=== PATIENT | female | born 1955 | race Caucasian/White ===

== ENCOUNTER 2017-03-16 16:54 | Outpatient (CLI) | payer OTHER ==
--- NOTE | 2017-03-17 11:50 | XRAY Report ---
BILATERAL FEET: 03/16/2017 HISTORY: Painful feet. COMPARISON: None. FINDINGS: Left foot: Degenerative change 1st metatarsophalangeal articulation with joint space narrowing, scle rosis, and spurring. Bunion formation. Minimal scattered degenerative changes of the interphalangea l joints of the toes. Very tiny calcaneal spur. Right foot: Advanced osteoarthritic 1st metatarsophalangeal degenerative change with joint space mary kate rowing, sclerosis, subchondral cyst formation, and spurring. Slight lateral subluxation of the 1st p roximal phalanx. Minimal degenerative change of the interphalangeal joint of the great toe and inter phalangeal joints of the other toes. Degenerative change 1st metatarsal head sesamoid articulation. Prominent plantar calcaneal spur and spurring from the superior navicular. No fracture or foreign body in either foot. IMPRESSION: DEGENERATIVE CHANGES OF THE FEET MOST MARKED AT THE 1ST METATARSOPHALANGEAL ARTICULATION , SIGNIFICANTLY WORSE ON THE RIGHT IN COMPARISON TO THE LEFT. JOB #: [id number] EXT JOB #:[id number]
== END 2017-03-16 16:55 | disposition home or self-care (01) ==
LOC: DI 16:54
PROVIDERS: ATTEND Podiatrist
DX: M19.072 Primary osteoarthritis, left ankle and foot (principal); M19.071 Primary osteoarthritis, right ankle and foot

== ENCOUNTER 2017-04-16 15:40 | Outpatient (CLI) | payer OTHER ==
--- NOTE | 2017-04-21 17:57 | Mammography Report ---
DIGITAL BILATERAL SCREENING MAMMOGRAM: 04/16/2017 COMPARISON STUDY: Mammogram 04/06/2016. TECHNIQUE: Routine CC and MLO projections were obtained of the breasts. FINDINGS: Scattered fibroglandular tissue is present within the breasts. There are no dominant mass es, suspicious microcalcifications, or secondary signs of malignancy. In comparison to the previous studies, there are no significant changes. There is postoperative right breast, stable. ASSESSMENT: NO MAMMOGRAPHIC EVIDENCE OF MALIGNANCY. NO SIGNIFICANT INTERVAL CHANGES. RECOMMENDATION: Screening mammography is recommended annually. BIRADS CATEGORY: 2, BENIGN FINDINGS. STANDARD QUALIFYING STATEMENTS 1. This examination was reviewed with the aid of Computed-Aided Detection (CAD). 2. A negative or benign imaging report should not delay biopsy if clinically suspicious findings are present. Consider surgical consultation if warranted. More than 5% of cancers are not identified b y imaging. 3. Dense breasts may obscure an underlying neoplasm. JOB #: [id number] EXT JOB #:[id number]
== END 2017-04-16 15:41 | disposition home or self-care (01) ==
LOC: DI.N 15:40
PROVIDERS: ATTEND Family Medicine
DX: Z12.31 Encounter for screening mammogram for malignant neoplasm of breast (principal)
CPT/HCPCS: 77067

== ENCOUNTER 2018-01-09 08:43 | Emergency (ER) | payer OTHER ==
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
[2018-01-09] MEDS ORDERED: HYDROcod/ACETAM 5/325 MG TABLET PO STA (09:35)
[2018-01-09] MEDS ORDERED: NAPROXEN 250 MG TABLET PO STA (09:35)
[2018-01-09 10:39] VITALS: BP 145/73
--- NOTE | 2018-01-09 10:43 | XRAY Report ---
Procedure Date: 01/09/2018 Accession Number: [id number] / [id number] Procedure: XR - Knee 3 View RT CPT Code: FULL RESULT: EXAM: RIGHT KNEE RADIOGRAPHY EXAM DATE: 01/09/2018 09:58 AM. CLINICAL HISTORY: Fell and twisted right knee yesterday COMPARISON: None. TECHNIQUE: 3 views. FINDINGS: Bones: The patient has a fracture of the lateral tibial plateau, Schatzker 2 or 3. There is depressed segment but, by radiograph, depression would most be 3 mm. Joints: A large knee effusion is demonstrated. Soft Tissues: Normal. No soft tissue swelling. IMPRESSION: Lateral tibial plateau fracture. CT may be helpful for surgical planning. RADIA
== END 2018-01-09 10:52 | disposition home or self-care (01) ==
LOC: ED 08:43
DX: M25.461 Effusion, right knee (principal); S86.911A Strain of unspecified muscle(s) and tendon(s) at lower leg level, right leg, initial encounter; W22.8XXA Striking against or struck by other objects, initial encounter; X50.9XXA Other and unspecified overexertion or strenuous movements or postures, initial encounter; Y92.832 Beach as the place of occurrence of the external cause
CPT/HCPCS: 73562; 99283; A9270

== ENCOUNTER 2018-04-18 16:08 | Outpatient (CLI) | payer OTHER ==
--- NOTE | 2018-04-20 10:01 | Mammography Report ---
Reason: SCREENING MAMMO Procedure Date: 04/18/2018 Accession Number: [id number] / [id number] Procedure: MGN - Screening Mammo Dig Bilat CPT Code: FULL RESULT: EXAM: Screening Mammo Dig Bilat DATE: 04/18/2018 4:28 PM CLINICAL HISTORY: Screening mammogram TECHNIQUE: Bilateral CC and MLO views were obtained. COMPARISON: Mammogram 04/16/2017 FINDINGS: There are scattered fibroglandular densities. There are benign-appearing calcifications. Right scar marker and right axillary clips are noted. No suspicious masses, clustered microcalcifications, or regions of architectural distortion are identified. IMPRESSION: Benign findings RECOMMENDATION: Routine annual screening unless otherwise clinically indicated. BIRADS CATEGORY 2: Benign findings STANDARD QUALIFYING STATEMENTS: 1. This examination was reviewed with the aid of Computer-Aided Detection (CAD). 2. A negative or benign imaging report should not delay biopsy if clinically suspicious findings are present. Consider surgical consultation if warrented. More than 5% of cancers are not identified by imaging. 3. Dense breasts may obscure an underlying neoplasm.
== END 2018-04-18 16:09 | disposition home or self-care (01) ==
LOC: DI.N 16:08
DX: Z12.31 Encounter for screening mammogram for malignant neoplasm of breast (principal)
CPT/HCPCS: 77067

== ENCOUNTER 2018-10-24 08:00 | Outpatient (CLI) | payer OTHER ==
[2018-10-24 12:44] LABS: BASOPHILS % (AUTO) 0.9 %; EOSINOPHILS # (AUTO) 0.3 10^3/uL (0.0-0.7); EOSINOPHILS % (AUTO) 6.4 %; HGB - HEMOGLOBIN 13.2 g/dL (12.0-16.0); LYMPHOCYTES # (AUTO) 1.1 10^3/uL (1.5-3.5); LYMPHOCYTES % (AUTO) 27.3 %; MEAN CORPUSCULAR HEMOGLOBIN 27.9 pg (27.0-31.0); MEAN CORPUSCULAR HGB CONC 33.2 g/dL (32.0-36.0); MEAN CORPUSCULAR VOLUME 84.1 fL (81.0-99.0); MEAN PLATELET VOLUME 8.8 fL (7.9-10.8); MONOCYTES # (AUTO) 0.4 10^3/uL (0.0-1.0); MONOCYTES % (AUTO) 9.8 %; NEUTROPHILS # (AUTO) 2.2 10^3/uL (1.5-6.6); NEUTROPHILS % (AUTO) 55.6 %; PLT - PLATELET COUNT 191 10^3/uL (130-450); RED BLOOD COUNT 4.72 10^6/uL (4.20-5.40); RED CELL DISTRIBUTION WIDTH 13.5 % (12.0-15.0)
[2018-10-24 12:58] LABS: ALBUMIN 3.9 g/dL (3.2-5.5); ALBUMIN/GLOBULIN RATIO 1.3 (1.0-2.2); ALKALINE PHOSPHATASE 75 IU/L (42-121); ALT ALANINE AMINOTRANSFERASE 32 IU/L (10-60); AST ASPARTATE AMINOTRANSFERASE 24 IU/L (10-42); BILIRUBIN,TOTAL 1.3 mg/dL (0.2-1.0); BUN - BLOOD UREA NITROGEN 19 mg/dL (6-20); CALCIUM 9.1 mg/dL (8.5-10.3); CARBON DIOXIDE - CO2 27 mmol/L (21-32); CHLORIDE 105 mmol/L (101-111); CHOL/HDL RATIO 3.5 (<4.4); CHOLESTEROL 222 mg/dL; CREATININE 0.9 mg/dL (0.4-1.0); GFR - MDRD 63 (>89); GLUCOSE 97 mg/dL (70-100); HDL CHOLESTEROL 63 mg/dL; LDL CHOLESTEROL,CALCULATED 144 mg/dL; LDL/HDL RATIO 2.3 (<4.4); MAGNESIUM 2.2 mg/dL (1.7-2.8); PHOSPHORUS 3.9 mg/dL (2.5-4.6); SODIUM 139 mmol/L (135-145); TOTAL PROTEIN 6.9 g/dL (6.7-8.2); VLDL CHOLESTEROL 15 mg/dL
== END 2018-10-24 23:59 | disposition home or self-care (01) ==
LOC: LAB.WCP 08:00
PROVIDERS: ATTEND Physician Assistant Medical
DX: R00.2 Palpitations (principal); E78.5 Hyperlipidemia, unspecified
CPT/HCPCS: 36415; 80053; 80061; 83721; 83735; 84100; 84443; 85025

== ENCOUNTER 2019-02-13 16:58 | Outpatient (CLI) | payer OTHER ==
--- NOTE | 2019-02-15 08:43 | XRAY Report ---
Reason: L CUBOID PAIN + 1ST MP JOINTS B Procedure Date: 02/13/2019 Accession Number: [id number] / [id number] Procedure: XR - Foot 3 View BILAT CPT Code: FULL RESULT: EXAMS: 1. Right Foot Radiography 2. Left Foot Radiography EXAM DATE: 02/13/2019 05:29 PM. CLINICAL HISTORY: Left cuboid pain first MP joints bilateral. COMPARISON: FOOT 3 VIEW BILAT 03/16/2017 4:59 PM. TECHNIQUE: 3 views each foot. FINDINGS: Right: Bones: Normal. No fractures or bone lesions. Joints: Mild bunion deformity. Joint space narrowing with [id number] articulation and moderate degenerative osteophytosis of the first MTP joint. Soft Tissues: Normal. No soft tissue swelling. Left: Bones: Normal. No fractures or bone lesions. No abnormality of the cuboid demonstrated. Joints: Mild bunion deformity. Joint space narrowing with [id number]-hw-izln articulation and small amount of subchondral cyst formation. Moderate degenerative osteophytosis similar to the contralateral side. Soft Tissues: Normal. No soft tissue swelling. IMPRESSION: Symmetric moderate degenerative arthrosis of the first MTP joints. RADIA
== END 2019-02-13 16:59 | disposition home or self-care (01) ==
LOC: DI 16:58
PROVIDERS: ATTEND Podiatrist
DX: M19.072 Primary osteoarthritis, left ankle and foot (principal); M19.071 Primary osteoarthritis, right ankle and foot

== ENCOUNTER 2019-04-21 13:28 | Outpatient (CLI) | payer OTHER ==
--- NOTE | 2019-04-21 15:27 | Mammography Report ---
Reason: ROUTINE MAMMO Procedure Date: 04/21/2019 Accession Number: [id number] / [id number] Procedure: MGN - Screening Mammo Dig Bilat CPT Code: FULL RESULT: EXAM: Screening Mammo Dig Bilat DATE: 04/21/2019 1:57 PM CLINICAL HISTORY: Personal history right breast cancer for routine screening TECHNIQUE: (B) - Bilateral CC and MLO views were obtained. COMPARISON: 04/18/2018, 04/16/2017, 04/06/2016, 04/11/2015, 04/20/2014, 04/13/2013 and 04/08/2012 PARENCHYMAL PATTERN: (F) - The breasts demonstrate diffuse fatty replacement bilaterally. FINDINGS: No significant interval change. Stable posttreatment changes right breast. There are no new suspicious masses, calcifications, or areas of distortion. IMPRESSION: Benign findings. BI-RADS category 2. RECOMMENDATION: (ANNUAL) - Recommend routine annual screening mammography. BI-RADS CATEGORY: (2) - Benign Findings. STANDARD QUALIFYING STATEMENTS: 1. This examination was not reviewed with the aid of Computer-Aided Detection (CAD). 2. A negative or benign imaging report should not preclude biopsy if clinically suspicious findings are present. 3. Dense breasts may obscure an underlying neoplasm. 4. This examination was reviewed without the aid of 3D breast imaging (tomosynthesis).
== END 2019-04-21 13:29 | disposition home or self-care (01) ==
LOC: DI.N 13:28
DX: Z12.31 Encounter for screening mammogram for malignant neoplasm of breast (principal); Z85.3 Personal history of malignant neoplasm of breast
CPT/HCPCS: 77067

== ENCOUNTER 2019-04-26 16:47 | Outpatient (CLI) | payer OTHER ==
--- NOTE | 2019-04-27 09:31 | XRAY Report ---
Reason: TMJ DERANGEMENT Procedure Date: 04/26/2019 Accession Number: [id number] / [id number] Procedure: XR - TMJ's-Temporal Mandibular Jts CPT Code: 47411 FULL RESULT: EXAM: RIGHT/LEFT/BILATERAL TEMPOROMANDIBULAR JOINT RADIOGRAPHY EXAM DATE: 04/26/2019 05:22 PM. CLINICAL HISTORY: TMJ DERANGEMENT. COMPARISON: None. TECHNIQUE: 5 views including open and closed mouth. FINDINGS: Bones: Normal. No fractures or bone lesions. Temporomandibular Joints: Normal. The temporomandibular joints are normally located and symmetric. Sinuses: Normal. No opacities or fluid levels. Other: Normal. No soft tissue swelling. IMPRESSION: Normal temporomandibular joint radiography. RADIA
== END 2019-04-26 16:48 | disposition home or self-care (01) ==
LOC: DI 16:47
PROVIDERS: ATTEND Physician Assistant
DX: M26.69 Other specified disorders of temporomandibular joint (principal)
CPT/HCPCS: 70330

== ENCOUNTER 2019-05-31 09:54 | Day surgery (SDC) | payer OTHER ==
[2019-05-31] MEDS ORDERED: MIDAZOLAM 2 MG/2 ML VIAL IVP ONE (09:55)
[2019-05-31] MEDS ORDERED: fentaNYL 250 MCG/5 ML VIAL IVP ONE (09:55)
[2019-05-31] MEDS ORDERED: LACTATED RINGERS 1,000 ML IV ONE (10:21)
[2019-05-31 12:18] VITALS: BP 116/85
== END 2019-05-31 09:55 | disposition home or self-care (01) ==
LOC: SDS 09:54
PROVIDERS: ATTEND Surgery
PROC: 0DBL8ZZ Excision of Transverse Colon, Via Natural or Artificial Opening Endoscopic (ICD-10-PCS; 2019-05-31)
PROC: 0DBH8ZZ Excision of Cecum, Via Natural or Artificial Opening Endoscopic (ICD-10-PCS; principal; 2019-05-31 11:30)
DX: Z12.11 Encounter for screening for malignant neoplasm of colon (principal); D12.0 Benign neoplasm of cecum; D12.3 Benign neoplasm of transverse colon; K63.3 Ulcer of intestine; K57.30 Diverticulosis of large intestine without perforation or abscess without bleeding; K64.8 Other hemorrhoids; Z79.82 Long term (current) use of aspirin
CPT/HCPCS: 45380; J3010; J7120

== ENCOUNTER 2021-02-06 08:00 | Outpatient (CLI) | payer OTHER ==
[2021-02-06 12:16] LABS: BASOPHILS % (AUTO) 0.7 %; EOSINOPHILS # (AUTO) 0.4 10^3/uL (0.0-0.7); EOSINOPHILS % (AUTO) 8.6 %; HCT - HEMATOCRIT 38.4 % (37.0-47.0); HGB - HEMOGLOBIN 12.1 g/dL (12.0-16.0); LYMPHOCYTES # (AUTO) 1.1 10^3/uL (1.5-3.5); LYMPHOCYTES % (AUTO) 27.4 %; MEAN CORPUSCULAR HEMOGLOBIN 28.1 pg (27.0-31.0); MEAN CORPUSCULAR HGB CONC 31.5 g/dL (32.0-36.0); MEAN CORPUSCULAR VOLUME 89.1 fL (81.0-99.0); MEAN PLATELET VOLUME 10.8 fL (7.9-10.8); MONOCYTES # (AUTO) 0.5 10^3/uL (0.0-1.0); MONOCYTES % (AUTO) 11.2 %; NEUTROPHILS # (AUTO) 2.1 10^3/uL (1.5-6.6); NEUTROPHILS % (AUTO) 51.9 %; PLT - PLATELET COUNT 179 10^3/uL (130-450); RED BLOOD COUNT 4.31 10^6/uL (4.20-5.40); RED CELL DISTRIBUTION WIDTH 13.8 % (12.0-15.0); WHITE BLOOD COUNT 4.1 x10^3/uL (4.8-10.8)
[2021-02-06 12:38] LABS: ALBUMIN 4.1 g/dL (3.2-5.5); ALBUMIN/GLOBULIN RATIO 1.5 (1.0-2.2); ALKALINE PHOSPHATASE 69 IU/L (42-121); ALT ALANINE AMINOTRANSFERASE 23 IU/L (10-60); AST ASPARTATE AMINOTRANSFERASE 21 IU/L (10-42); BILIRUBIN,TOTAL 1.1 mg/dL (0.2-1.0); BUN - BLOOD UREA NITROGEN 22 mg/dL (6-20); CALCIUM 9.7 mg/dL (8.5-10.3); CARBON DIOXIDE - CO2 29 mmol/L (21-32); CHLORIDE 105 mmol/L (101-111); CHOL/HDL RATIO 4.7 (<4.4); CHOLESTEROL 232 mg/dL; CREATININE 0.9 mg/dL (0.4-1.0); GFR - MDRD 62 (>89); GLUCOSE 100 mg/dL (70-100); HDL CHOLESTEROL 49 mg/dL; LDL CHOLESTEROL,CALCULATED 163 mg/dL; LDL/HDL RATIO 3.3 (<4.4); POTASSIUM 4.2 mmol/L (3.5-5.0); SODIUM 141 mmol/L (135-145); TOTAL PROTEIN 6.9 g/dL (6.7-8.2); TRIGLYCERIDES 100 mg/dL; VLDL CHOLESTEROL 20 mg/dL
[2021-02-06 12:40] LABS: THYROID STIMULATING HORMONE 3.37 uIU/mL (0.34-5.60)
== END 2021-02-06 23:59 | disposition home or self-care (01) ==
LOC: LAB.WCP 08:00
PROVIDERS: ATTEND Physician Assistant Medical
DX: E78.5 Hyperlipidemia, unspecified (principal); R00.2 Palpitations; K21.9 Gastro-esophageal reflux disease without esophagitis
CPT/HCPCS: 36415; 80053; 80061; 83721; 84443; 85025

== ENCOUNTER 2021-09-23 08:49 | Outpatient (CLI) | payer MEDICARE, OTHER ==
--- NOTE | 2021-09-24 09:03 | Mammography Report ---
BILATERAL DIGITAL SCREENING MAMMOGRAM 3D/2D: 09/23/2021 CLINICAL: Routine screening. Personal history of right breast cancer. Comparison is made to exams dated: 04/21/2019 mammogram, 04/18/2018 mammogram, and 04/16/2017 mammog [facility]. The tissue of both breasts is predominantly fatty. There are benign post operative findings in the right breast. No significant masses, calcifications, or other findings are seen in either breast. There has been no significant interval change. IMPRESSION: BENIGN There is no mammographic evidence of malignancy. A 1 year screening mammogram is recommended. This exam was interpreted at Station ID: [id number]. NOTE: For mammograms, a report in lay terms will be sent to the patient. Approximately 15% of breast malignancies will not be visualized mammographically. In the management of a palpable breast mass, a negative mammogram must not discourage biopsy of a clinically suspicious lesion. Electronically Signed By: Karen wong/[email or web address]:09/23/2021 16:27:43 ACR BI-RADS Category 2: Benign Finding(s) 3342F PARENCHYMAL PATTERN: (F) - The breast(s) demonstrate(s) diffuse fatty replacement. BI-RADS CATEGORY: (2) - 2 RECOMMENDATION: (ANNUAL) - Recommend routine annual screening mammography. [id number] 1 year screening LATERALITY: (B)
== END 2021-09-23 08:50 | disposition home or self-care (01) ==
LOC: DI.N 08:49
DX: Z12.31 Encounter for screening mammogram for malignant neoplasm of breast (principal); Z85.3 Personal history of malignant neoplasm of breast

== ENCOUNTER 2022-01-13 09:41 | Outpatient (CLI) | payer OTHER, MEDICARE ==
--- NOTE | 2022-01-13 16:04 | XRAY Report ---
PROCEDURE: Knee Standing BILAT INDICATIONS: PT LM UP FRONT. I TECHNIQUE: 3 views of the left knee, and . views of the right knee. COMPARISON: None. FINDINGS: Bones: No acute fractures or dislocations. No suspicious bony lesions. There is moderate bilateral medial compartment narrowing, left greater than right. Moderate bilateral patellofemoral compartment narrowing is present. Minimal right lateral compartment narrowing is present. Periarticular osteophyt es are present most severe in the medial left compartment. No erosions. Soft tissues: No knee joint effusions. No suspicious soft tissue calcification. IMPRESSION: Tricompartmental arthritic change as described above. Reviewed by: Anjelica Vasquez MD on 01/13/2022 4:03 PM PDT Approved by: Anjelica Vasquez MD on 01/13/2022 4:03 PM PDT Station ID: [id number]
== END 2022-01-13 09:42 | disposition home or self-care (01) ==
LOC: DI.N 09:41
PROVIDERS: ATTEND Physician Assistant Medical
DX: M17.0 Bilateral primary osteoarthritis of knee (principal)

== ENCOUNTER 2022-07-27 09:38 | Outpatient (CLI) | payer OTHER, MEDICARE ==
[2022-07-27 09:51] LABS: EOSINOPHILS # (AUTO) 0.3 10^3/uL (0.0-0.7); EOSINOPHILS % (AUTO) 7.5 %; HCT - HEMATOCRIT 41.2 % (37.0-47.0); HGB - HEMOGLOBIN 13.3 g/dL (12.0-16.0); LYMPHOCYTES # (AUTO) 1.2 10^3/uL (1.5-3.5); LYMPHOCYTES % (AUTO) 31.8 %; MEAN CORPUSCULAR HEMOGLOBIN 28.1 pg (27.0-31.0); MEAN CORPUSCULAR HGB CONC 32.3 g/dL (32.0-36.0); MEAN CORPUSCULAR VOLUME 87.1 fL (81.0-99.0); MEAN PLATELET VOLUME 9.9 fL (7.9-10.8); MONOCYTES # (AUTO) 0.4 10^3/uL (0.0-1.0); MONOCYTES % (AUTO) 11.4 %; NEUTROPHILS # (AUTO) 1.9 10^3/uL (1.5-6.6); PLT - PLATELET COUNT 194 10^3/uL (130-450); RED BLOOD COUNT 4.73 10^6/uL (4.20-5.40); RED CELL DISTRIBUTION WIDTH 12.8 % (12.0-15.0); WHITE BLOOD COUNT 3.9 x10^3/uL (4.8-10.8)
[2022-07-27 10:13] LABS: ALBUMIN 4.1 g/dL (3.2-5.5); ALBUMIN/GLOBULIN RATIO 1.2 (1.0-2.2); ALKALINE PHOSPHATASE 75 IU/L (42-121); ALT ALANINE AMINOTRANSFERASE 27 IU/L (10-60); AST ASPARTATE AMINOTRANSFERASE 23 IU/L (10-42); BILIRUBIN,TOTAL 1.4 mg/dL (0.2-1.0); BUN - BLOOD UREA NITROGEN 21 mg/dL (6-20); CALCIUM 9.2 mg/dL (8.5-10.3); CARBON DIOXIDE - CO2 28 mmol/L (21-32); CHLORIDE 103 mmol/L (101-111); CHOLESTEROL 221 mg/dL; GFR - MDRD 55 (>89); GLUCOSE 100 mg/dL (70-100); HDL CHOLESTEROL 55 mg/dL; LDL CHOLESTEROL,CALCULATED 148 mg/dL; LDL/HDL RATIO 2.7 (<4.4); POTASSIUM 4.2 mmol/L (3.5-5.0); SODIUM 139 mmol/L (135-145); TOTAL PROTEIN 7.5 g/dL (6.7-8.2); TRIGLYCERIDES 88 mg/dL; VLDL CHOLESTEROL 18 mg/dL
[2022-07-27 10:21] LABS: THYROID STIMULATING HORMONE 2.84 uIU/mL (0.34-5.60)
--- NOTE | 2022-07-27 11:19 | XRAY Report ---
PROCEDURE: Chest 2 View X-Ray INDICATIONS: COUGH TECHNIQUE: 2 views of the chest were acquired. COMPARISON: None. FINDINGS: Surgical changes and devices: None. Lungs and pleura: No pleural effusions or pneumothorax. Lungs are clear. Mediastinum: Mediastinal contours are normal. Heart size is normal. Bones and chest wall: No suspicious bony abnormalities. Soft tissues appear unremarkable. IMPRESSION: No acute cardiopulmonary findings Reviewed by: Alexandr Estrada MD on 07/27/2022 10:18 AM [facility] Approved by: Alexandr Estrada MD on 07/27/2022 10:18 AM [facility] Station ID: [id number]
== END 2022-07-27 09:39 | disposition home or self-care (01) ==
LOC: DI 09:38
PROVIDERS: ATTEND Physician Assistant Medical
DX: R05.9 Cough, unspecified (principal); E78.5 Hyperlipidemia, unspecified; Z00.00 Encounter for general adult medical examination without abnormal findings; K21.9 Gastro-esophageal reflux disease without esophagitis
CPT/HCPCS: 36415; 80053; 80061; 83721; 84443; 85025

== ENCOUNTER 2022-12-18 09:55 | Outpatient (CLI) | payer OTHER, MEDICARE ==
--- NOTE | 2022-12-18 11:28 | XRAY Report ---
PROCEDURE: Foot 3 View LT INDICATIONS: ARTHRITIS, LEFT FOOT, RHEUMATOID FACTOR POSITIVE TECHNIQUE: 3 views of the foot were acquired. COMPARISON: None. FINDINGS: Bones: No fractures or dislocations. No suspicious bony lesions. Hallucis longus valgus with associ ated first TMT joint space narrowing, subchondral bone cysts and osteophyte lipping. Bone callus form ation of the first metatarsal head. Soft tissues: No suspicious soft tissue calcifications or masses. IMPRESSION: First TMT osteoarthritis with hallux valgus. No evidence of rheumatoid arthritis. Reviewed by: Luis Gallegos on 12/18/2022 11:26 AM PDT Approved by: Luis Gallegos on 12/18/2022 11:26 AM PDT Station ID: [id number]
== END 2022-12-18 09:56 | disposition home or self-care (01) ==
LOC: DI.N 09:55
PROVIDERS: ATTEND Physician Assistant Medical
DX: M19.072 Primary osteoarthritis, left ankle and foot (principal); M20.12 Hallux valgus (acquired), left foot; R78.89 Finding of other specified substances, not normally found in blood

== ENCOUNTER 2023-10-04 12:00 | Outpatient (CLI) | payer OTHER, MEDICARE ==
[2023-10-04 17:39] LABS: BASOPHILS % (AUTO) 0.5 %; EOSINOPHILS # (AUTO) 0.3 10^3/uL (0.0-0.7); EOSINOPHILS % (AUTO) 6.1 %; HCT - HEMATOCRIT 40.4 % (37.0-47.0); HGB - HEMOGLOBIN 12.8 g/dL (12.0-16.0); LYMPHOCYTES # (AUTO) 1.1 10^3/uL (1.5-3.5); LYMPHOCYTES % (AUTO) 27.4 %; MEAN CORPUSCULAR HEMOGLOBIN 27.9 pg (27.0-31.0); MEAN CORPUSCULAR HGB CONC 31.7 g/dL (32.0-36.0); MEAN CORPUSCULAR VOLUME 88.2 fL (81.0-99.0); MEAN PLATELET VOLUME 10.5 fL (7.9-10.8); MONOCYTES # (AUTO) 0.4 10^3/uL (0.0-1.0); MONOCYTES % (AUTO) 10.5 %; NEUTROPHILS # (AUTO) 2.3 10^3/uL (1.5-6.6); NEUTROPHILS % (AUTO) 55.3 %; PLT - PLATELET COUNT 198 10^3/uL (130-450); RED BLOOD COUNT 4.58 10^6/uL (4.20-5.40); RED CELL DISTRIBUTION WIDTH 13.5 % (12.0-15.0); WHITE BLOOD COUNT 4.1 x10^3/uL (4.8-10.8)
[2023-10-04 18:39] LABS: RHEUMATOID FACTOR NEGATIVE (Negative)
[2023-10-04 18:41] LABS: ALBUMIN/GLOBULIN RATIO 1.3 (1.0-2.2); ALKALINE PHOSPHATASE 83 IU/L (42-121); ALT ALANINE AMINOTRANSFERASE 24 IU/L (10-60); AST ASPARTATE AMINOTRANSFERASE 18 IU/L (10-42); BUN - BLOOD UREA NITROGEN 19 mg/dL (6-20); CALCIUM 9.8 mg/dL (8.5-10.3); CARBON DIOXIDE - CO2 30 mmol/L (21-32); CHLORIDE 105 mmol/L (101-111); CHOL/HDL RATIO 3.9 (<4.4); CHOLESTEROL 221 mg/dL; CREATININE 0.9 mg/dL (0.6-1.3); GFR - MDRD 62 (>89); GLUCOSE 101 mg/dL (74-104); HDL CHOLESTEROL 57 mg/dL; LDL CHOLESTEROL,CALCULATED 140 mg/dL; LDL/HDL RATIO 2.5 (<4.4); POTASSIUM 4.5 mmol/L (3.5-4.5); SODIUM 139 mmol/L (135-145); TOTAL PROTEIN 7.2 g/dL (6.4-8.9); TRIGLYCERIDES 121 mg/dL (48-352); VLDL CHOLESTEROL 24 mg/dL
[2023-10-04 18:55] LABS: THYROID STIMULATING HORMONE 2.24 uIU/mL (0.34-5.60)
== END 2023-10-04 12:01 | disposition home or self-care (01) ==
LOC: LAB.N 12:00
PROVIDERS: ATTEND Physician Assistant Medical
DX: Z00.00 Encounter for general adult medical examination without abnormal findings (principal); E78.5 Hyperlipidemia, unspecified; R76.8 Other specified abnormal immunological findings in serum
CPT/HCPCS: 36415; 80053; 80061; 83721; 84443; 85025; 86430

== ENCOUNTER 2023-12-08 13:36 | Outpatient (CLI) | payer OTHER, MEDICARE ==
--- NOTE | 2023-12-09 09:39 | Mammography Report ---
BILATERAL DIGITAL SCREENING MAMMOGRAM 3D/2D: 12/08/2023 CLINICAL: Routine screening. Personal history of right breast cancer. Comparison is made to exams dated: 09/23/2021 mammogram, 04/21/2019 mammogram, 04/18/2018 mammogram, 04/16/2017 mammogram, 04/06/2016 mammogram, and 04/11/2015 mammogram - [facility]. Both breasts are almost entirely fatty (category a/<25% glandular tissue). There are benign post operative findings in the right breast. No significant masses, calcifications, or other findings are seen in either breast. There has been no significant interval change. IMPRESSION: BENIGN There is no mammographic evidence of malignancy. A 1 year screening mammogram is recommended. This exam was interpreted at Station ID: [id number]. NOTE: For mammograms, a report in lay terms will be sent to the patient. Approximately 15% of breast malignancies will not be visualized mammographically. In the management of a palpable breast mass, a negative mammogram must not discourage biopsy of a clinically suspicious lesion. Electronically Signed By: Tanner carr/carson:12/09/2023 07:43:16 letter sent: No_Letter ACR BI-RADS Category 2: Benign Finding(s) 3342F PARENCHYMAL PATTERN: (F) - The breast(s) demonstrate(s) diffuse fatty replacement. BI-RADS CATEGORY: (2) - 2 RECOMMENDATION: (ANNUAL) - Recommend routine annual screening mammography. [id number] 1 year screening LATERALITY: (B)
== END 2023-12-08 13:37 | disposition home or self-care (01) ==
LOC: DI 13:36
DX: Z12.31 Encounter for screening mammogram for malignant neoplasm of breast (principal); Z85.3 Personal history of malignant neoplasm of breast

== ENCOUNTER 2023-12-08 13:38 | Outpatient (CLI) | payer OTHER, MEDICARE ==
--- NOTE | 2023-12-09 10:05 | DEXA Report ---
PROCEDURE: Dexa Spine and/or Hip INDICATIONS: POST MENOPAUSAL TECHNIQUE: Dual energy x-ray absorptiometry (DXA) was performed on a [employer] System. Regions measur ed are the AP Spine, femoral neck, and if needed forearm. COMPARISON: None FINDINGS: Lumbar Spine: Bone Mineral Density: 1.226 g/cm/cm,T score: 0.4. Left Femoral Neck: Bone Mineral Density: 0.866 g/cm/cm, T score: -1.2. Left Hip: Bone Mineral Density: 0.999 g/cm/cm,T score: -0.1. (T score greater or equal to -1.0: NORMAL) (T score from -1.1 to -2.4: OSTEOPENIA) (T score less than or equal to -2.5 to: OSTEOPOROSIS) Impression: By WHO criteria, this patient has low bone density (osteopenia). Patients with diagnosis of osteoporosis or osteopenia should have regular bone mineral density assess ment. For those eligible for Medicare, routine testing is allowed once every 2 years. Testing frequ ency can be increased for patients who have rapidly progressing disease or for those who are receivin g medical therapy to restore bone mass. Reviewed by: Gonzales Rodriguez MD on 12/09/2023 10:04 AM PDT Approved by: Gonzales Rodriguez MD on 12/09/2023 10:04 AM PDT Station ID: [id number]
== END 2023-12-08 13:39 | disposition home or self-care (01) ==
LOC: DI 13:38
PROVIDERS: ATTEND Physician Assistant Medical
DX: M85.88 Other specified disorders of bone density and structure, other site (principal); Z78.0 Asymptomatic menopausal state

== ENCOUNTER 2024-02-18 11:23 | Day surgery (SDC) | payer OTHER, MEDICARE ==
[2024-02-18] MEDS: LACTATED RINGERS 1,000 ML IV ONE ×2 (11:33→14:01)
--- NOTE | 2024-02-18 12:35 | ANESTHESIA ---
Pre-Anesthesia VS, & Labs - Diagnosis HX OF POLYPS - Procedure COLONOSCOPY Vital Signs: Temp Pulse Resp BP Pulse Ox O2 Flow Rate 36.6 C 69 17 176/84 H 96 02/18/24 11:33 02/18/24 11:33 02/18/24 11:33 02/18/24 11:33 02/18/24 11:33 Height: 5 ft 7.5 in Weight (kg): 123.9 kg Body Mass Index: 42.1 BMI Classification: Morbidly Obese - NPO >8 hours (BOWEL PREP COMPLETED) - Is Patient ?: No Home Medications and Allergies Home Medications: Ambulatory Orders Biotin 5 mg PO DAILY 02/17/24 Vitamin B Complex 1 each PO 02/17/24 Alprazolam 0.5 mg PO HS 12/23/12 Aspirin 81 mg PO DAILY 12/23/12 Cholecalciferol (Vitamin D3) [Vitamin D-3] 2,000 units PO DAILY 12/23/12 Citalopram [CeleXA] 10 mg PO DAILY 12/23/12 Omeprazole [PriLOSEC] 20 mg PO DAILY 12/23/12 valACYclovir [Valtrex] 500 mg PO ONCE PRN 12/23/12 buPROPion [Wellbutrin Sr] 150 mg PO DAILY 01/09/18 Metoprolol Tartrate 1 BID 05/31/19 Biotin 5 mg PO DAILY 02/17/24 Vitamin B Complex 1 each PO 02/17/24 Allergies/Adverse Reactions: Allergies Allergy/AdvReac Type Severity Reaction Status Date / Time amoxicillin [Amoxicillin] Allergy Intermediate Rash Verified 02/17/24 13:19 codeine [Codeine] Allergy Intermediate Rash Verified 02/17/24 13:19 Sulfa (Sulfonamide Allergy Intermediate Rash Verified 02/17/24 13:19 Antibiotics) Anes History & Medical History - Anesthetic History Anesthesia Complications: reports: No previous complications Family history of Anesthesia Complications: Denies Family history of Malignant Hyperthermia: Denies - Medical History Cardiovascular: reports: Hypertension Pulmonary: reports: None Gastrointestinal: reports: GERD Urinary: reports: None Neuro: reports: None Musculoskeletal: reports: Rheumatoid arthritis Endocrine/Autoimmune: reports: Other Blood Disorders: reports: None Skin: reports: None Smoking Status: Never smoker Psychosocial: reports: No issues indicated History of Cancer?: Yes (BREAST CANCER RESOLVED; HX OF CHEMO AND RADIATION) - Surgical History General: reports: Cholecystectomy, Colonoscopy Gynecologic: reports: Hysterectomy, Oophrectomy, Other Orthopedic: reports: Rotator cuff repair, Other Results - EKG Results EKG Comparison: Reviewed EKG, Normal EKG Exam General: Alert, Oriented x3, Cooperative, No acute distress Dental: WNL Mouth Openin Fingerbreadth Neck Mobility: Normal Mallampati classification: II Thyromental Distance: 4-6 cm Mental/Cognitive Status: Alert/Oriented X3, Normal for patient Cognitive Status: Within normal limits Plan Anesthesia Type: General Consent for Procedure(s) Verified and Reviewed: Yes Code Status: Attempt Resuscitation ASA classification: 3-Severe systemic disease Is this case an emergency?: No
[2024-02-18] MEDS ORDERED: PROPOFOL 500 MG/50 ML 500 MG/50 ML VIAL ONE (13:57)
[2024-02-18] MEDS ORDERED: LIDOCAINE-PF 2% 10 ML AMP SUBQ ONE (13:57)
[2024-02-18 14:56] VITALS: BP 170/95; O2SAT 99
--- NOTE | 2024-02-18 14:59 | ANESTHESIA POST OP EVALUATION ---
Anesthesia Post Eval - Post Anesthesia Eval Vitals: Last Vital Signs Temp 36.1 C L 02/18/24 14:15 Pulse 69 02/18/24 14:15 Resp 16 02/18/24 14:15 BP 170/95 H 02/18/24 14:15 Pulse Ox 99 02/18/24 14:15 O2 Flow Rate CV Function Including HR & BP: Stable Pain Control: Satisfactory Nausea & Vomiting: Negative Mental Status: Baseline Respiratory Status: Airway Patent Hydration Status: Satisfactory Anesthesia Complications: None
== END 2024-02-18 11:24 | disposition home or self-care (01) ==
LOC: SDS 11:23
PROVIDERS: ATTEND Surgery
PROC: 0DBK8ZX Excision of Ascending Colon, Via Natural or Artificial Opening Endoscopic, Diagnostic (ICD-10-PCS; principal; 2024-02-18 12:30)
DX: K63.5 Polyp of colon (principal); K57.30 Diverticulosis of large intestine without perforation or abscess without bleeding; D17.5 Benign lipomatous neoplasm of intra-abdominal organs; I10 Essential (primary) hypertension; E66.01 Morbid (severe) obesity due to excess calories; Z68.41 Body mass index [BMI] 40.0-44.9, adult
CPT/HCPCS: 45380; J7120